=== PATIENT | female | born 1950 | race Caucasian/White ===

== ENCOUNTER 2017-01-16 23:09 | Inpatient (IN) | payer MEDICARE ==
--- NOTE | ~2017-01-16 | OP ---
Record Of Operation [facility] [address] [place]. [address] NAME: MAHIN CHAN : 49 STATUS : ADM IN PAT#: [id number] AGE: 66 ADM/REG DATE : 01/17/17 MR#: [id number] REPORT SERV DATE: 01/18/17 DICTATED BY: DANDY VÁSQUEZ DATE: 01/18/17 REPORT STATUS : Draft TRANSCRIBED BY: MODL DATE: 01/18/17 DATE OF PROCEDURE: 01/17/2017 PREOPERATIVE DIAGNOSIS: Acute appendicitis. POSTOPERATIVE DIAGNOSE: Acute suppurative necrotizing appendicitis. PROCEDURE: Laparoscopic appendectomy. SURGEON: Dandy Vásquez M.D. DESCRIPTION OF OPERATIVE PROCEDURE: The patient was brought to operating suite, placed in supine position. She underwent satisfactory general endotracheal anesthesia. The skin of the abdomen was scrubbed, prepped, and draped in usual sterile fashion. 0.5% Marcaine with epinephrine was utilized as supplemental local anesthesia at all intended trocar sites. Initially, an infraumbilical incision was performed dissecting through the skin and subcutaneous tissue to the umbilical fascia, this was grasped with Timoteo clamp and elevated. A disposable Veress insufflation needle was inserted through the umbilical fascia into the peritoneal cavity. Intraperitoneal tip location was ascertained using the saline hanging drop method. Following this, CO2 was insufflated for pressures of 15 mmHg throughout the case. After adequate insufflation pressure achieved, the Veress needle was removed, and disposable bladed shielded 12 mm trocar was inserted through the umbilical fascia into the peritoneal cavity. Following this, a rigid forward-viewing 10 mm laparoscope was inserted. Visualization of the intraabdominal parietes revealed no evidence of injury from initial insufflation or puncture. Two additional 5 mm trocars were placed under direct visualization; one in the suprapubic midline and the other in the epigastrium. Attention was turned to the right lower quadrant. The cecum was deep in the pelvis. The appendix was suppurative and inflamed in tucked in next to the right pelvic gutter. Using blunt dissection, the appendix was freed up and it was not ruptured but was acutely edematous, inflamed, and suppurative. An avascular window was created at the base of the appendix at its junction with the cecum. EndoGIA 45 linear stapler with GI load was passed across the base of the appendix and actuated and fired transecting the appendix from its base. An additional firing of the vascular load of the same device was successful in transecting the mesoappendix and then the appendix was placed inside an EndoRetrieval pouch. Irrigation in the periappendiceal area was performed and hemostasis was assured. Next, laparoscopy was terminated. Trocars were removed. CO2 was allowed to egress from peritoneal cavity. No muscular bleeding was noted. The umbilicus was closed with figure-of eight suture of 0 Vicryl, subcutaneous tissue closed with interrupted 4-0 Vicryl, running subcuticular stitch of 4-0 Vicryl for the skin. Dermabond skin adhesive applied. Record Of Operation [address] [place]. [address] NAME: MAHIN CHAN : 49 STATUS : ADM IN LOCATED WITHIN [facility]#: [id number] AGE: 66 ADM/REG DATE : 01/17/17 MR#: [id number] REPORT SERV DATE: 01/18/17 DICTATED BY: DANDY VÁSQUEZ DATE: 01/18/17 REPORT STATUS : Draft TRANSCRIBED BY: CHA DATE: 01/18/17 The patient tolerated the procedure quite well and was returned to the PACU in stable condition. At the termination of the procedure, sponge, needle, lap, and instrument counts were correct x3. ESTIMATED BLOOD LOSS: Less than 10-15 mL. SAUNDRA/CHA Dandy Vásquez M.D. / [id number] CC: Raji King M.D.
--- NOTE | ~2017-01-16 | CN ---
Consultation Report [facility] [address] [place]. [address] NAME: MAHIN LIRIANO : 48 STATUS : ADM IN PAT#: [id number] AGE: 66 ADM/REG DATE : 01/17/17 MR#: [id number] REPORT SERV DATE: 01/21/17 DICTATED BY: FARA LI III DATE: 01/20/17 REPORT STATUS : Draft TRANSCRIBED BY: MODGoldy DATE: 01/20/17 DATE OF CONSULTATION: 01/20/2017 HISTORY OF PRESENT ILLNESS: Mrs. Mahin Liriano is a 66-year-old white female from [place], [place], referred for evaluation of paroxysmal atrial fibrillation. The patient had been in her usual state of health until approximately seven years prior to this admission. At that time, the patient presented with paroxysmal atrial fibrillation. The patient was evaluated by a general maintenance engineer in [place]. The patient was treated with aspirin, clopidogrel, nadolol, and diltiazem. The patient denied any history of cardioversion or ablation. The patient denied any history of antiarrhythmic therapy. The patient did well until 01/17/2017. At that time, the patient was admitted to [facility] with an acute suppurative appendicitis. The patient subsequently underwent uncomplicated laparoscopic cholecystectomy by Dr. Dandy Pettit. The patient did well until the day prior to this consultation. At that time, the patient noted the onset of palpitations. Telemetry strip recordings demonstrated atrial fibrillation with a rapid ventricular response. The patient was treated with intravenous diltiazem. The patient was subsequently converted to sinus rhythm. The patient was referred for evaluation. The patient has been told that she has a cardiac murmur. The patient denied dyspnea on exertion, syncope, chest pain, pedal edema, sacral edema, hip claudication, and lower extremity claudication. The patient has no history of rheumatic fever. The patient's documented coronary artery disease risk factors include family history, hyperlipoproteinemia, and tobacco use. The patient has a history of alcohol use. The patient denied any history of hyperthyroidism, left atrial enlargement, atrial septal defect, chest trauma, pneumonia, pulmonary embolism, or chronic obstructive pulmonary disease. PAST MEDICAL HISTORY: 1. Status post transient ischemic attack. 2. Obstructive sleep apnea, CPAP compliant. 3. History of recurrent clostridia difficile. 4. Cholelithiasis. 5. Hyperlipoproteinemia. 6. Hemorrhoids. OPERATIVE PROCEDURES: 1. Status post section. 2. Status post total abdominal hysterectomy. 3. Status post bilateral breast augmentation. ALLERGIES: NONE. MEDICATIONS: 1. Aspirin 325 mg p.o. daily. Consultation Report [facility] [address] [place]. [address] NAME: MAHIN LIRIANO : 48 STATUS : ADM IN [facility]#: [id number] AGE: 66 ADM/REG DATE : 01/17/17 MR#: [id number] REPORT SERV DATE: 01/21/17 DICTATED BY: FARA LI III DATE: 01/20/17 REPORT STATUS : Draft TRANSCRIBED BY: CHA DATE: 01/20/17 2. Aztreonam 2 g IV q.8 hours. 3. Clopidogrel 75 mg p.o. daily. 4. Diltiazem CD 100 20 mg p.o. daily. 5. Enoxaparin 40 mg subcutaneous daily. 6. Metronidazole 500 mg. 7. Transdermal nicotine 14 mg patch to skin daily. 8. Pravastatin 40 mg p.o. at bedtime. 9. Topiramate 100 mg p.o. at bedtime. 10.Vancomycin 125 mg p.o. q.6 hours. FAMILY HISTORY: Positive for hypertension, myocardial infarction, stroke, and diabetes mellitus. Negative for seizures, kidney disease, liver disease, cancer, anemia, arthritis, and mental illness. SOCIAL HISTORY: The patient smokes approximately 1/2 pack per day. The patient has smoked intermittently but approximately a total of 15 years. The patient has a history of occasional alcohol use. PHYSICAL EXAMINATION: GENERAL: Physical examination demonstrated an alert, older white female, in no acute distress. VITAL SIGNS: Demonstrated temperature of 98.4 orally, respiratory rate of 20 breaths per minute, and blood pressure of 96/51 mmHg with a heart rate of 82 beats per minute. SKIN: Warm and dry. NECK: Supple and nontender. There was decreased range of motion. There was no appreciable lymphadenopathy or thyromegaly. There was no jugular venous distention at 90 degrees. There were no carotid bruits. BACK: Examination of the back demonstrated no spinal or costovertebral angle tenderness. CHEST: Examination of the chest demonstrated that was clear to auscultation. There were no crackles, rhonchi, wheezes, or pleural rubs. There was symmetrical expansion of the chest. CARDIAC: Cardiac examination demonstrated a nonpalpable apical impulse. There was a regular rhythm and rate without appreciable murmur, rub, gallop, or mid systolic click. There were no thrills or heaves. There was no hepatojugular reflux. ABDOMEN: Examination of the abdomen demonstrated that it was soft and mildly tender. There was no appreciable hepatosplenomegaly or masses. Bowel sounds were intact. There were no abdominal or femoral bruits. EXTREMITIES: Examination of the extremities demonstrated that they were symmetrical. There was decreased range of motion. There was no cyanosis, clubbing, or edema. Pulses were 2+ and equal at the radial, femoral, and dorsalis pedis arteries. The posterior tibial pulses were trace and nonpalpable. ASSESSMENT: Mrs. Mahin Liriano is a 66-year-old white female with three other risk factors for coronary atherosclerotic disease (i.e. family history, hyperlipoproteinemia, tobacco use) and a history of paroxysmal atrial fibrillation treated with aspirin/diltiazem, who now presents with symptomatic atrial fibrillation with a rapid ventricular response. I Consultation Report [address] [place]. [address] NAME: MAHIN LIRIANO : 48 STATUS : ADM IN [facility]#: [id number] AGE: 66 ADM/REG DATE : 01/17/17 MR#: [id number] REPORT SERV DATE: 01/21/17 DICTATED BY: FARA LI III DATE: 01/20/17 REPORT STATUS : Draft TRANSCRIBED BY: CHA DATE: 01/20/17 agree with the thyroid profile and an echocardiogram. The patient's [id number] score was 4. Therefore, I would recommend discontinuation of clopidogrel and enoxaparin. I would recommend the initiation of therapy with apixaban 5 mg p.o. b.i.d. I would also recommend an increase in the patient's diltiazem CD to 240 mg p.o. daily. Further recommendations to follow. It has been a pleasure participating in the care of your patient. CAROLINE/CHA Fara Li III, M.D., [facility], FSCAI / [id number] CC: Raji King M.D.
--- NOTE | ~2017-01-16 | HP ---
History And Physical [place] [id number] [place]. [address] NAME: MAHIN LIRIANO : 48 STATUS : ADM IN [facility]#: [id number] AGE: 66 ADM/REG DATE : 01/17/17 MR#: [id number] REPORT SERV DATE: 01/17/17 DICTATED BY: HEATHER LEO DATE: 01/17/17 REPORT STATUS : Draft TRANSCRIBED BY: MODGoldy DATE: 01/17/17 DATE OF ADMISSION: 01/17/2017 POINT OF ENTRY: [facility] Emergency Department. PRIMARY RELAY RECORD CLERK: Jovani Staples M.D. CHIEF COMPLAINT: Nausea and diarrhea. HISTORY OF PRESENT ILLNESS: Ms. Liriano is a 66-year-old female with a history of recurrent C. diff infection, who presents to the emergency department with a one-day history of nausea, abdominal pain, and cramping as well as diarrhea. The patient states that she was first diagnosed with C. diff colitis in June 2016. She has had a single recurrence in November of this year, and in fact, just completed a long-term course of oral vancomycin therapy. She states about a week ago, she had a repeat C. diff test done that was negative and Dr. Staples then told her to stop her vancomycin. Beginning yesterday, the patient started to develop diffuse abdominal cramping pain, nausea, as well as return of profuse watery diarrhea. She denies any vomiting. Does endorse some poor oral intake for the past day secondary to nausea. Denies any fevers, night sweats, or chills. She is unable to tell me if she has had any significant diarrhea today. Initial evaluation in the emergency department is notable for a CT scan showing pancolitis. She has not produced a stool sample to check for C. diff. Her white count is elevated 12.5; potassium is 2.5 with a bicarb of 18. The patient was subsequently admitted to the Hospitalist Service for further evaluation and management. REVIEW OF SYSTEMS: Comprehensive review of systems otherwise negative unless listed in history of present illness. PREVIOUS MEDICAL HISTORY: 1. History of TIA in 2016. 2. Obstructive sleep apnea, on CPAP therapy. 3. History of recurrent C. diff infection. SURGICAL HISTORY: Abdominal hysterectomy. ALLERGIES: NO KNOWN DRUG ALLERGIES. HOME MEDICATIONS: Pending at the time of dictation. SOCIAL HISTORY: She smokes about a half pack per day. Denies any alcohol. Denies any illicits. History And Physical [address] [place]. [address] NAME: MAHIN LIRIANO : 48 STATUS : ADM IN PAT#: [id number] AGE: 66 ADM/REG DATE : 01/17/17 MR#: [id number] REPORT SERV DATE: 01/17/17 DICTATED BY: HEATHER LEO DATE: 01/17/17 REPORT STATUS : Draft TRANSCRIBED BY: CHA DATE: 01/17/17 FAMILY MEDICAL HISTORY: Mother with hypertension and coronary artery disease. Father of complications of gunshot wound. LABS AND IMAGIN. White count is 12.5, hemoglobin is 13.7, hematocrit is 39.6, and platelet counts 160. 2. Sodium is 135, potassium 2.5, chloride 107, carbon dioxide 18, BUN 10, creatinine 0.90, glucose is 108, calcium is 9.7, magnesium is 1.6, protein is 7.6, albumin is 3.7, bilirubin is 1.5. ALT is 17, AST 18, alkaline phosphatase is 88. 3. Lipase is 93. 4. Troponin less than 0.02. 5. Lactic acid 1.8. 6. Urinalysis: Spec gravity 1.012, hazy with 4 red blood cells per high-powered field with no evidence of any infection, but with trace ketones. 7. EKG per my review shows normal sinus rhythm with heart rates in the 90s with primarily inferolateral ST depressions. 8. CT scan of the abdomen and pelvis shows pancolitis with cholelithiasis. PHYSICAL EXAMINATION: VITAL SIGNS: Temperature is 99.5 degrees Fahrenheit, pulse initially 110, respirations 22, saturating 98% on room air, and blood pressure 120/60, on recheck, blood pressure now 113/54, pulse 95. GENERAL: The patient is awake and alert, in no acute distress. Resting comfortably in bed. She is a chronically ill-appearing elderly female. No family is at bedside. HEENT: Atraumatic and normocephalic. Dry mucous membranes. Pupils equal, round, reactive to light and accommodation. Extraocular eye movements intact. No scleral icterus. NECK: No jugular venous distention or carotid bruits. CARDIAC: Regular rate and rhythm. No murmurs, rubs, or gallops. Normal S1, S2. LUNGS: Clear to auscultation bilaterally. No wheezes, rhonchi, or crackles. ABDOMEN: Soft, mildly tender to palpation in bilateral lower quadrants. No rebound, guarding, or rigidity. EXTREMITIES: Warm and perfused. No cyanosis, clubbing, or edema. SKIN: Warm and dry. PSYCH: Affect appropriate. NEURO: Alert and oriented x3. Cranial nerves 2 through 12 grossly intact. Speech is normal. Gait not assessed. ASSESSMENT AND PLAN: Ms Liriano is a 66-year-old female with history of recurrent Clostridium difficile infection, who presents with a one-day history of abdominal pain, nausea, and diarrhea, and found to have evidence of pancolitis. PROBLEM LIST: 1. Pancolitis. 2. Hypokalemia. 3. Leukocytosis. 4. History of recurrent C. diff. 5. Metabolic acidosis. 6. Inferolateral ST depressions. History And Physical [address] [address] NAME: MAHIN LIRIANO : 48 STATUS : ADM IN [facility]#: [id number] AGE: 66 ADM/REG DATE : 01/17/17 MR#: [id number] REPORT SERV DATE: 01/17/17 DICTATED BY: HEATHER LEO DATE: 01/17/17 REPORT STATUS : Draft TRANSCRIBED BY: CHA DATE: 01/17/17 PLAN: 1. Pancolitis, unclear if this is a recurrent C. diff colitis or if this is unrelated to C. diff. C. diff PCR has been ordered, but she has been unable to produce any sample at this time. In the meantime, we will place the patient just on IV Flagyl as well as provide supportive therapy. We will consult Gastroenterology for assistance. Try to obtain [facility] records as this is where she tends to go for hospitalizations in the past. 2. Leukocytosis likely secondary to pancolitis. Urinalysis without evidence of infection. She is afebrile. Blood cultures have been obtained. 3. Hypokalemia. Provide aggressive repletion with both IV as well as p.o. potassium. 4. History of recurrent Clostridium difficile infection. She states she has had a recent negative Clostridium difficile PCR. We will repeat one here. In the meantime, place the patient only on IV Flagyl to reduce risk of recurrence. 5. Inferolateral ST depressions. She actually denies any chest pain. Does not have many cardiac risk factors, except for active tobacco abuse. Initial cardiac enzymes were remarkable, we will continue to trend these out. I suspect that her changes might be due to elevated heart rate as well as underlying hypokalemia. We will aggressively replete her potassium and continue to trend out enzymes as well as EKG. Place her on cardiac monitoring. 6. Metabolic acidosis likely secondary to her ketones, as lactic acid is within normal limits. We will continue to monitor. 7. DVT prophylaxis. Lovenox subcu. CODE STATUS: The patient wished to be full code. JCB/MODL Heather Leo MD / [id number] CC: Frances Alcantar M.D. Gregory Olds, MD
--- NOTE | ~2017-01-16 | DS ---
Discharge Summary [place] [address] [facility] [place]. [address] NAME: MAHIN CHAN : 48 STATUS : DIS IN PAT#: [id number] AGE: 66 ADM/REG DATE : 01/17/17 MR#: [id number] REPORT SERV DATE: 01/22/17 DICTATED BY: CARTER BLANCO DATE: 01/21/17 REPORT STATUS : Draft TRANSCRIBED BY: MODL DATE: 01/21/17 ADMISSION DATE: 01/17/2017 DISCHARGE DATE: 01/21/[address] MAGISTRATE: Dr. Staples. CONSULTING PHYSICIAN: Dr. Li for Cardiology and Dr. Pettit for Surgery. FINAL DIAGNOSES: 1. Status post lap appendectomy for acute appendicitis. 2. Clostridium difficile colitis. 3. Gram-variable bacteremia, probably contaminant. 4. Paroxysmal atrial fibrillation. 5. Hypertension. 6. History of transient ischemic attack. 7. History of seizures. 8. Obstructive sleep apnea. 9. Tobacco abuse. 10.Status post hypokalemia. DIAGNOSTIC EXAM: CAT scan of the abdomen and pelvis showing acute appendicitis, gallstones, prior hysterectomy, pelvic CAT scan showing diffuse thickening and enlargement of the appendix with mild stranding inflammation in the adjacent mesentery. Findings are not significantly changed compared to 01/16/2017. There are no abscess collections or free air. Echocardiogram showing normal left ventricular systolic function with EF of 60% to 65%, mild diastolic dysfunction, normal right ventricular chamber size and systolic function. No evidence of significant valvular regurgitation or stenosis. HOSPITAL COURSE: Please refer to the H and P done by Dr. Vigil, dated on 01/17/2017. Briefly, this is a 66-year-old female who comes in for nausea and diarrhea. The patient has a history of atrial fibrillation, but it is paroxysmal. She moved here and been with Dr. Odell for a couple of years now, and she was told to get a cafeteria counter attendant; but however, she does not have a regular one. The patient was first diagnosed with C. diff in 06/2016, and then a recurrence in November. The patient was treated with p.o. Vanco, and she was tested negative recently with Dr. Staples. The patient then started having some abdominal pain, it started in the epigastric area, then localized to the right lower quadrant area. The patient went to the emergency room and was diagnosed with a possible C. diff. However, CAT scan shows that the patient has acute appendicitis. The patient got a surgical consultation with Dr. Pettit, wherein a repeat CAT scan verified the findings, and she underwent a laparoscopic appendectomy. The patient got the appendix removed and she felt better; however, she started having diarrhea and that tested positive for C. diff. She was then treated with p.o. Vanco. Meanwhile, the patient went into rapid atrial fibrillation. She was placed on Cardizem drip, and then converted in the last [address] Li involved, got an echocardiogram which shows the above findings. The patient then was placed on p.o. Cardizem on a higher dose. Meanwhile, the blood cultures in the emergency room are growing 2 out of 2 g variable rods, and so far it has not been identified. She was started Discharge Summary [address] [address] NAME: MAHIN CHAN : 48 STATUS : DIS IN PAT#: [id number] AGE: 66 ADM/REG DATE : 01/17/17 MR#: [id number] REPORT SERV DATE: 01/22/17 DICTATED BY: CARTER BLANCO DATE: 01/21/17 REPORT STATUS : Draft TRANSCRIBED BY: CHA DATE: 01/21/17 on broad-spectrum antibiotics because of the acute appendicitis; however, we stopped it and the patient did well. We are not sure if this is real or this is more of a skin contaminant. We are reluctant to start any other antibiotics aside from the p.o. Vanco because the patient is currently having C. diff. The patient expressed her wishes to go home. She is not having any fever and would not wait for the cultures to come back. I talked with microbiology. They could not figure out what this microbe is, and they are not certain that they would still have an identification until Monday. The patient said that she would just give her PCP a call for this, so we will be discharging the patient as she is wanting to go home, and we are not going to be starting any antibiotics anyway because of the C. diff. She will be discharged on the above diagnosis. DISCHARGE MEDICATIONS: She will be on the following medications: Eliquis 5 mg twice a day; Plavix will be discontinued; aspirin 325 mg a day; diltiazem 240 mg a day, CD kind; nicotine patch 14 mg a day; Pravachol 40 mg at bedtime; Topamax 100 mg at bedtime; vancomycin 125 mg q.6 until 01/31, then q.8 until 02/07, and then q.12 until 02/14, then daily until 02/21, then q.2 days until 02/28; BuSpar 10 mg twice a day; Ativan 1 mg twice a day p.r.n.; levsin 0.125 mg four times a day p.r.n. abdominal pain; Caltrate 600+D twice a day. The patient will follow up with Dr. Odell in one to two weeks and follow up with Dr. Li in two to four weeks. This has been explained to the patient, and she agreed and understood the plan. TIME SPENT: 45 minutes. SAMY/CHA Carter Blanco M.D. / [id number] CC: Zohra Odell M.D.
[~2017-01-16 23:09] MED LIST: ATV.5 PO; CELEXA40 MG PO; COR40 PO; PLAVIX PO
[2017-01-16 23:47] LABS: ASCORBIC ACID (UR NOT ORDER) NEG (NEG); BILIRUBIN, URINE NEGATIVE (NEG); ER URINALYSIS TAT 0 Hrs 00 Mins; KETONE, URINE 20 MG/DL (NEG); LEUKOCYTE ESTERASE(NOT OR NEG (NEG); NITRITE (URINE) NEG (NEG); WBC (NOT ORDERED) (RFLEX) 2 (0-5)
[2017-01-17 00:05] LABS: BASOPHILS 0.1 %; BASOPHILS ABSOLUTE 0.01 10/3/uL (0.0-0.16); EOSINOPHILS 0 %; HEMATOCRIT 39.6 % (36.0-48.0); HEMOGLOBIN 13.7 g/dL (12.0-16.0); IMMATURE GRANULOCYTES 0.3 %; IMMATURE GRANULOCYTES ABSOLUTE 0.04 10/3/uL (0.0-0.11); LYMPHOCYTES 3.9 %; LYMPHOCYTES ABSOLUTE 0.49 10/3/uL (0.67-4.30); MEAN CORPUS HGB CONC 34.6 g/dL (32.0-36.0); MEAN CORPUSCULAR HEMOGLOB 33.4 pg (26.0-34.0); MEAN CORPUSCULAR VOLUME 96.6 fL (80-100); MEAN PLATELET VOLUME 9.5 fL (9.2-13.0); MONOCYTES 0.8 %; NEUTROPHILS 94.9 %; NEUTROPHILS ABSOLUTE 11.84 10/3/uL (2.02-8.40); PLATELET COUNT 160 10/3/uL (150-400); RBC DISTRIBUTION WIDTH 14.1 % (12.0-16.0); WHITE BLOOD CELLS 12.5 10/3/uL (4.5-10.5)
[2017-01-17 00:06] LABS: ER CBC TAT 0 Hrs 07 MinsNP; MANUAL DIFF NO %
[2017-01-17 00:23] LABS: LACTATE 1.8 MMOL/L (0.3-2.4)
[2017-01-17 00:41] LABS: A/G RATIO 0.9 (0.7-1.9); ALBUMIN 3.7 G/DL (3.5-5.0); ALKALINE PHOSPHATASE 88 U/L (45-117); BUN (BLOOD UREA NITROGEN) 10 MG/DL (6-23); CALCIUM, SERUM 9.7 MG/DL (8.5-10.4); CHLORIDE, SERUM 107 MMOL/L (96-112); CO2 (CARBON DIOXIDE) 18 MMOL/L (24-34); GFR AFRICAN AMERICAN 77 ML/MIN (>=60); GFR NON AFRICAN AMERICAN 66 ML/MIN (>=60); GLOBULIN 3.9 G/DL (2.5-4.1); GLUCOSE, SERUM 108 MG/DL (60-99); SGOT(AST) 18 U/L (5-40); SGPT(ALT) 17 U/L (5-65); SODIUM, SERUM 139 MMOL/L (135-148); TOTAL BILIRUBIN 1.5 MG/DL (0-1.2); TOTAL PROTEIN 7.6 G/DL (6.0-8.5); TROPONIN I <0.02 NG/ML (<0.05)
[2017-01-17 00:42] LABS: POTASSIUM, SERUM 2.5 MMOL/L (3.5-5.3)
[2017-01-17] MEDS ORDERED: TOPAMAX100 PO (02:23)
[2017-01-17] MEDS ORDERED: PLAVIX PO (02:23)
[2017-01-17] MEDS ORDERED: PRAVACHOL40 MG PO (02:23)
[2017-01-17] MEDS ORDERED: ATV1 PO (02:24)
[2017-01-17] MEDS ORDERED: LEVSINTAB PO/SL (02:24)
[2017-01-17] MEDS ORDERED: BUSPAR10 PO (02:24)
[2017-01-17] MEDS ORDERED: CALTRA600D PO (02:24)
[2017-01-17] MEDS ORDERED: CARTIA XT120 MG/24 PO (02:24)
[2017-01-17] MEDS ORDERED: ASAEC PO (02:25)
[2017-01-17 09:29] LABS: INTERNATIONAL NORMAL RATI 1.3 UNITS (-); PARTIAL THROMBO TIME 30.9 SEC (22.5-37.2); PROTIME (NOT ORD) 15.8 SEC (12.0-14.5)
[2017-01-17 09:37] LABS: CK-MB < 0.5 NG/ML; CPK 34 U/L (0-200); TROPONIN I <0.02 NG/ML (<0.05)
[2017-01-17 10:18] LABS: HEMATOCRIT 34.2 % (36.0-48.0); MANUAL DIFF YES %; MEAN CORPUS HGB CONC 35.1 g/dL (32.0-36.0); MEAN CORPUSCULAR VOLUME 96.9 fL (80-100); MEAN PLATELET VOLUME 10.2 fL (9.2-13.0); PLATELET COUNT 159 10/3/uL (150-400); RBC DISTRIBUTION WIDTH 14.4 % (12.0-16.0); RED CELL COUNT 3.53 10/6/uL (4.0-5.6); WHITE BLOOD CELLS 20.6 10/3/uL (4.5-10.5)
[2017-01-17 10:24] LABS: BUN (BLOOD UREA NITROGEN) 9 MG/DL (6-23); CHLORIDE, SERUM 110 MMOL/L (96-112); CO2 (CARBON DIOXIDE) 18 MMOL/L (24-34); CREATININE 0.75 MG/DL (0.55-1.02); GFR AFRICAN AMERICAN 96 ML/MIN (>=60); GFR NON AFRICAN AMERICAN 82 ML/MIN (>=60); GLUCOSE, SERUM 114 MG/DL (60-99); SODIUM, SERUM 141 MMOL/L (135-148)
[2017-01-17 10:25] LABS: POTASSIUM, SERUM 3.6 MMOL/L (3.5-5.3)
[2017-01-17 10:48] LABS: BAND NEUTROPHILS 12 %; LYMPHOCYTES 2 %; LYMPHOCYTES ABSOLUTE (CALC) 0.41 10/3/uL (0.67-4.30); MONOCYTES 4 %; MONOCYTES ABSOLUTE (CALC) 0.82 10/3/uL (0.21-1.20); NEUTROPHILS ABSOLUTE (CALC) 19.36 10/3/uL (2.02-8.40); PLATELET ESTIMATE ADQ (ADEQUATE); SEGMENTED NEUTROPHIL (0) 82 %; TOTAL NUCLEATED CELLS 100
[2017-01-17 10:49] LABS: RBC MORPHOLOGY NORM (NORMAL)
[2017-01-17 13:19] LABS: CK-MB < 0.5 NG/ML; CPK 33 U/L (0-200); TROPONIN I <0.02 NG/ML (<0.05)
[2017-01-18 06:37] LABS: BASOPHILS 0 %; EOSINOPHILS 0 %; HEMATOCRIT 31.8 % (36.0-48.0); HEMOGLOBIN 10.7 g/dL (12.0-16.0); IMMATURE GRANULOCYTES 0.2 %; IMMATURE GRANULOCYTES ABSOLUTE 0.02 10/3/uL (0.0-0.11); LYMPHOCYTES ABSOLUTE 0.47 10/3/uL (0.67-4.30); MEAN CORPUS HGB CONC 33.6 g/dL (32.0-36.0); MEAN CORPUSCULAR HEMOGLOB 33.2 pg (26.0-34.0); MEAN CORPUSCULAR VOLUME 98.8 fL (80-100); MEAN PLATELET VOLUME 9.5 fL (9.2-13.0); MONOCYTES 3.7 %; MONOCYTES ABSOLUTE 0.35 10/3/uL (0.21-1.20); NEUTROPHILS 91.1 %; NEUTROPHILS ABSOLUTE 8.58 10/3/uL (2.02-8.40); PLATELET COUNT 132 10/3/uL (150-400); RBC DISTRIBUTION WIDTH 14.9 % (12.0-16.0); RED CELL COUNT 3.22 10/6/uL (4.0-5.6)
[2017-01-18 06:39] LABS: MANUAL DIFF NO %; WHITE BLOOD CELLS 9.4 10/3/uL (4.5-10.5)
[2017-01-18 06:55] LABS: BUN (BLOOD UREA NITROGEN) 8 MG/DL (6-23); CALCIUM, SERUM 8.3 MG/DL (8.5-10.4); CHLORIDE, SERUM 112 MMOL/L (96-112); CREATININE 0.62 MG/DL (0.55-1.02); GFR AFRICAN AMERICAN 108 ML/MIN (>=60); GFR NON AFRICAN AMERICAN 93 ML/MIN (>=60); POTASSIUM, SERUM 4.1 MMOL/L (3.5-5.3); SGOT(AST) 12 U/L (5-40); SGPT(ALT) 13 U/L (5-65); SODIUM, SERUM 144 MMOL/L (135-148)
[2017-01-18 07:00] LABS: A/G RATIO 0.8 (0.7-1.9); ALBUMIN 2.6 G/DL (3.5-5.0); ALKALINE PHOSPHATASE 48 U/L (45-117); CO2 (CARBON DIOXIDE) 24 MMOL/L (24-34); GLOBULIN 3.4 G/DL (2.5-4.1); GLUCOSE, SERUM 141 MG/DL (60-99); TOTAL BILIRUBIN 0.4 MG/DL (0-1.2)
[2017-01-19 06:01] LABS: BASOPHILS 0.1 %; BASOPHILS ABSOLUTE 0.01 10/3/uL (0.0-0.16); EOSINOPHILS 0.2 %; EOSINOPHILS ABSOLUTE 0.02 10/3/uL (0.0-0.53); HEMOGLOBIN 9.8 g/dL (12.0-16.0); IMMATURE GRANULOCYTES 0.1 %; IMMATURE GRANULOCYTES ABSOLUTE 0.01 10/3/uL (0.0-0.11); LYMPHOCYTES 12.7 %; LYMPHOCYTES ABSOLUTE 1.06 10/3/uL (0.67-4.30); MEAN CORPUS HGB CONC 33.8 g/dL (32.0-36.0); MEAN CORPUSCULAR HEMOGLOB 32.9 pg (26.0-34.0); MEAN CORPUSCULAR VOLUME 97.3 fL (80-100); MEAN PLATELET VOLUME 10.3 fL (9.2-13.0); MONOCYTES 7.3 %; MONOCYTES ABSOLUTE 0.61 10/3/uL (0.21-1.20); NEUTROPHILS 79.6 %; NEUTROPHILS ABSOLUTE 6.63 10/3/uL (2.02-8.40); PLATELET COUNT 144 10/3/uL (150-400); RBC DISTRIBUTION WIDTH 14.9 % (12.0-16.0); RED CELL COUNT 2.98 10/6/uL (4.0-5.6); WHITE BLOOD CELLS 8.3 10/3/uL (4.5-10.5)
[2017-01-19 06:06] LABS: MANUAL DIFF NO %
[2017-01-20 03:43] LABS: BASOPHILS 0.4 %; BASOPHILS ABSOLUTE 0.02 10/3/uL (0.0-0.16); EOSINOPHILS 1.1 %; EOSINOPHILS ABSOLUTE 0.06 10/3/uL (0.0-0.53); HEMATOCRIT 32.6 % (36.0-48.0); IMMATURE GRANULOCYTES 0.4 %; IMMATURE GRANULOCYTES ABSOLUTE 0.02 10/3/uL (0.0-0.11); LYMPHOCYTES 31.6 %; LYMPHOCYTES ABSOLUTE 1.73 10/3/uL (0.67-4.30); MEAN CORPUS HGB CONC 33.7 g/dL (32.0-36.0); MEAN CORPUSCULAR HEMOGLOB 32.9 pg (26.0-34.0); MEAN CORPUSCULAR VOLUME 97.6 fL (80-100); MEAN PLATELET VOLUME 10.1 fL (9.2-13.0); MONOCYTES 8.2 %; MONOCYTES ABSOLUTE 0.45 10/3/uL (0.21-1.20); NEUTROPHILS 58.3 %; NEUTROPHILS ABSOLUTE 3.19 10/3/uL (2.02-8.40); PLATELET COUNT 185 10/3/uL (150-400); RBC DISTRIBUTION WIDTH 14.8 % (12.0-16.0); RED CELL COUNT 3.34 10/6/uL (4.0-5.6); WHITE BLOOD CELLS 5.5 10/3/uL (4.5-10.5)
[2017-01-20 03:44] LABS: MANUAL DIFF NO %
[2017-01-20 04:03] LABS: CPK (IF ELEVATED MB BANDS) 19 U/L (0-200); TROPONIN I <0.02 NG/ML (<0.05)
[2017-01-20 11:57] LABS: CPK (IF ELEVATED MB BANDS) 18 U/L (0-200); TROPONIN I <0.02 NG/ML (<0.05)
[2017-01-20 12:22] LABS: BUN (BLOOD UREA NITROGEN) 5 MG/DL (6-23); CALCIUM, SERUM 8.2 MG/DL (8.5-10.4); CHLORIDE, SERUM 112 MMOL/L (96-112); CO2 (CARBON DIOXIDE) 17 MMOL/L (24-34); CREATININE 0.67 MG/DL (0.55-1.02); FREE T4 1.41 NG/DL (0.76-1.46); GFR AFRICAN AMERICAN 105 ML/MIN (>=60); GFR NON AFRICAN AMERICAN 91 ML/MIN (>=60); GLUCOSE, SERUM 136 MG/DL (60-99); POTASSIUM, SERUM 3.1 MMOL/L (3.5-5.3); SODIUM, SERUM 143 MMOL/L (135-148)
[2017-01-20 20:17] LABS: CPK (IF ELEVATED MB BANDS) 15 U/L (0-200); TROPONIN I <0.02 NG/ML (<0.05)
[2017-01-21 06:19] LABS: BUN (BLOOD UREA NITROGEN) 7 MG/DL (6-23); CALCIUM, SERUM 8.7 MG/DL (8.5-10.4); CHLORIDE, SERUM 114 MMOL/L (96-112); CO2 (CARBON DIOXIDE) 21 MMOL/L (24-34); CREATININE 0.64 MG/DL (0.55-1.02); GFR AFRICAN AMERICAN 107 ML/MIN (>=60); GFR NON AFRICAN AMERICAN 92 ML/MIN (>=60); GLUCOSE, SERUM 87 MG/DL (60-99); POTASSIUM, SERUM 3.9 MMOL/L (3.5-5.3); SODIUM, SERUM 142 MMOL/L (135-148)
[2017-01-21] MEDS ORDERED: ELIQUIS 5 MG TAB5 MG PO (17:57)
[2017-01-21] MEDS ORDERED: HABIT14 TOP (18:05)
[2017-01-21] MEDS ORDERED: VANCOMYCIN PO (18:10)
== END 2017-01-21 19:46 | disposition home or self-care (01) | DRG 342 ==
LOC: ER 23:09 → 2SO 01-17 02:20
PROVIDERS: Internal Medicine; Specialist
PROC: 0DTJ4ZZ Resection of Appendix, Percutaneous Endoscopic Approach (ICD-10-PCS; principal; 2017-01-17 14:15)
DX: K35.80 Unspecified acute appendicitis (principal); A04.7 Enterocolitis due to Clostridium difficile; E87.2 Acidosis; Z99.81 Dependence on supplemental oxygen; I48.0 Paroxysmal atrial fibrillation; E87.6 Hypokalemia; F17.210 Nicotine dependence, cigarettes, uncomplicated; G40.909 Epilepsy, unspecified, not intractable, without status epilepticus; G47.33 Obstructive sleep apnea (adult) (pediatric); Z86.73 Personal history of transient ischemic attack (TIA), and cerebral infarction without residual deficits; Z98.890 Other specified postprocedural states; Z82.49 Family history of ischemic heart disease and other diseases of the circulatory system
CPT/HCPCS: 72192; 74176; 80048; 80053; 81001; 82550; 82553; 83605; 83690; 83735; 84439; 84443; 84484; 85025; 85610; 85730; 87040; 87328; 87329; 87493; 87493-59; 88304; 93005; 93306; 96374; 96375; 99285; A9270-GY; J0330; J2250; J2370; J2405; J2710; J3010; J3370; J3475